=== PATIENT | female | born 1960 | race Caucasian/White ===

== ENCOUNTER → 2021-12-05 | Outpatient (CLI) | payer OTHER ==
--- NOTE | 2021-12-05 15:19 | Diagnostic Imaging Report ---
INDICATION: Hypertension Bilateral renal sonography is performed in the routine fashion. The right kidney measured 11.6 x 5.1 x 4.6 cm. The left kidney measured 10.7 x 5.2 x 5.7 cm. Both kidneys showed normal cortical echogenicity and thickness with no hydronephrosis or mass. Urinary bladder appeared normal with bilateral ureteral jets. Renal artery Doppler was performed. Waveforms appear normal. Velocities are within normal range with no sonographic evidence of significant renal artery stenosis. IMPRESSION: Unremarkable bilateral renal sonography, with normal-appearing renal artery Doppler. No evidence of renal artery stenosis. Dictated by: Dictated on workstation # [id number]
== END ==
LOC: RAD 09:15
PROVIDERS: ATTEND Family Medicine
DX: I10 Essential (primary) hypertension (principal)
CPT/HCPCS: 76770; 93975